=== PATIENT | female | born 1970 | race Caucasian/White ===

== ENCOUNTER 2021-02-22 10:45 | Emergency (ER) | payer OTHER ==
[~2021-02-22] VITALS: Ht 152.4 cm; Wt 92.0 kg
[2021-02-22 10:48] VITALS: BP 116/57
== END 2021-02-22 17:09 | disposition left against medical advice (07) ==
LOC: ER 10:45
DX: Z53.21 Procedure and treatment not carried out due to patient leaving prior to being seen by health care provider (principal)